=== PATIENT | female | born 1990 | race Hispanic/Latino ===

== ENCOUNTER 2018-07-29 19:13 | Emergency (ER) | payer OTHER | END 2018-07-29 20:29 | disposition home or self-care (01) | LOC: EDH 19:13 | DX: S60.221A Contusion of right hand, initial encounter (principal); G43.909 Migraine, unspecified, not intractable, without status migrainosus; V49.49XA Driver injured in collision with other motor vehicles in traffic accident, initial encounter; Y93.89 Activity, other specified; Y92.89 Other specified places as the place of occurrence of the external cause; Y99.8 Other external cause status | CPT/HCPCS: 73130 ==